=== PATIENT | female | born 1935 | race Caucasian/White ===

== ENCOUNTER 2016-07-18 12:39 | Inpatient (IN) | payer BC ==
[2016-07-14 12:35] LABS: BASOPHILS 0.4 %; BASOPHILS ABSOLUTE 0.03 10/3/uL (0.0-0.16); EOSINOPHILS 2.4 %; EOSINOPHILS ABSOLUTE 0.16 10/3/uL (0.0-0.53); HEMATOCRIT 38.5 % (36.0-48.0); IMMATURE GRANULOCYTES 0.4 %; IMMATURE GRANULOCYTES ABSOLUTE 0.03 10/3/uL (0.0-0.11); MEAN CORPUS HGB CONC 33.8 g/dL (32.0-36.0); MEAN CORPUSCULAR HEMOGLOB 30.7 pg (26.0-34.0); MEAN PLATELET VOLUME 10.1 fL (9.2-13.0); MONOCYTES 10.2 %; MONOCYTES ABSOLUTE 0.69 10/3/uL (0.21-1.20); NEUTROPHILS 55.6 %; NEUTROPHILS ABSOLUTE 3.77 10/3/uL (2.02-8.40); PLATELET COUNT 162 10/3/uL (150-400); RBC DISTRIBUTION WIDTH 13.2 % (12.0-16.0); RED CELL COUNT 4.23 10/6/uL (4.0-5.6); WHITE BLOOD CELLS 6.8 10/3/uL (4.5-10.5)
[2016-07-14 12:37] LABS: MANUAL DIFF NO %
[2016-07-14 12:53] LABS: BUN (BLOOD UREA NITROGEN) 21 MG/DL (6-23); CALCIUM, SERUM 9.1 MG/DL (8.5-10.4); CHLORIDE, SERUM 111 MMOL/L (96-112); CO2 (CARBON DIOXIDE) 28 MMOL/L (24-34); CREATININE 1.02 MG/DL (0.55-1.02); GFR AFRICAN AMERICAN 59 ML/MIN (>=60); GFR NON AFRICAN AMERICAN 51 ML/MIN (>=60); GLUCOSE, SERUM 104 MG/DL (60-99); POTASSIUM, SERUM 4.4 MMOL/L (3.5-5.3); SODIUM, SERUM 143 MMOL/L (135-148)
--- NOTE | ~2016-07-18 | OP ---
Record Of Operation [facility] [address] [place]. [address] NAME: PRASANNA DELAROSA : 33 STATUS : ADM IN PAT#: [id number] AGE: 81 ADM/REG DATE : 07/18/16 MR#: [id number] REPORT SERV DATE: 07/18/16 DICTATED BY: TYE RIVAS DATE: 07/18/16 REPORT STATUS : Draft TRANSCRIBED BY: MODL DATE: 07/18/16 DATE OF PROCEDURE: 07/18/2016 PREOPERATIVE DIAGNOSIS: High-grade right carotid stenosis. POSTOPERATIVE DIAGNOSIS: High-grade right carotid stenosis. PROCEDURE: Right carotid endarterectomy. SURGEON: Tye Rivas M.D. FELLOW: Kirit. ANESTHESIA: General. COMPLICATIONS: None. ESTIMATED BLOOD LOSS: 50 mL. HISTORY: The patient is an 81-year-old female with a high-grade right carotid stenosis. Based on this, it was felt she would benefit from right carotid endarterectomy. This was discussed in detail with the patient. She expressed understanding and desired to proceed. DESCRIPTION OF PROCEDURE: The patient was taken to the operating room and placed in the supine position. She was given general anesthesia without complication. Roll was placed under the shoulders. Head was turned to the left. An incision was created on the anterior border of the sternocleidomastoid muscle, taking care to be more than 1 fingerbreadth away from the angle of the mandible. Bovie cautery was used to dissect through the subcutaneous tissues. The sternocleidomastoid muscle was identified. Dissection was continued on the anterior border of it. The internal jugular vein was dissected and dissection continued on the anterior border of it. The common facial vein was identified and freed circumferentially and ligated with 2-0 silk ties and divided. Dissection was continued to identify the common carotid artery which was freed circumferentially and isolated with a vessel loop. Continued dissection was performed to identify the internal carotid artery beyond the area of disease. This was freed circumferentially and isolated with a vessel loop as well. The patient was given 6000 units of heparin intravenously. The external carotid and superior thyroid arteries were identified and isolated with a vessel loop as well. After more than 3 minutes of heparinization, the internal carotid artery was controlled with a vessel loop followed by the common carotid artery and external carotid artery. An 11 blade was used to create an arteriotomy on the common carotid artery. This was extended longitudinally onto the internal carotid artery beyond the area of disease. Endarterectomy was performed in a standard fashion with feathering of the proximal and distal end point and eversion endarterectomy on the external carotid artery. Two tacking sutures were placed on the distal end point with 7-0 Prolene suture. The endarterectomy site was copiously irrigated with all loose debris removed. Once this was felt to be adequate, the arteriotomy was closed using 8 x 80 bovine pericardial patch and running 6-0 Record Of Operation [facility] [id number] [place]. [address] NAME: PRASANNA DELAROSA : 33 STATUS : ADM IN [facility]#: [id number] AGE: 81 ADM/REG DATE : 07/18/16 MR#: [id number] REPORT SERV DATE: 07/18/16 DICTATED BY: TYE RIVAS DATE: 07/18/16 REPORT STATUS : Draft TRANSCRIBED BY: BLAINE DATE: 07/18/16 Prolene suture. Prior to completion, the shunt was pulled from the lateral aspect. The internal and external carotid arteries were back bled. The common carotid artery was flushed. The endarterectomy site was copiously irrigated. The closure was completed and flow restored to the external carotid artery, then after more than 5 heartbeats to the internal carotid artery. Hemostasis was assured and fibrillar placed over the closure. The deep tissues and platysma closed with 2-0 Vicryl suture. Skin closed with 4-0 Monocryl suture and Dermabond dressing applied. The patient tolerated the procedure well. She will be taken to the recovery room if neurologically intact after extubation in the operating room. ELIJAH/BLAINE Tye Rivas M.D. / [id number] CC: Tye Rivas M.D.
[~2016-07-18 12:39] MED LIST: ACET500CAP PO; ADVAIR; ADVIL PO; ALPHAGAN T; ASAB PO; CENTRUM TAB1 TAB PO; CITRACAL PO; COSOPT OPH; CRESTOR5 MG PO; FLONASE NAS; IBU400 PO; ISTALOL0.5 % OP; L20 PO; LEVOTHYROXIN112 MCG PO; MICARDIS40 PO; MULTIPLE VIT PO; NASAL SPRAY NAS; NORV5 PO; PLAVIX PO; PRAV10 PO; SPIRIVA; TRAVATAN OPH; VENTOLIN HFA INH
[2016-07-19 03:32] LABS: BASOPHILS 0.1 %; BASOPHILS ABSOLUTE 0.01 10/3/uL (0.0-0.16); EOSINOPHILS 0 %; HEMOGLOBIN 11.2 g/dL (12.0-16.0); IMMATURE GRANULOCYTES 0.3 %; IMMATURE GRANULOCYTES ABSOLUTE 0.02 10/3/uL (0.0-0.11); LYMPHOCYTES 12.4 %; LYMPHOCYTES ABSOLUTE 0.87 10/3/uL (0.67-4.30); MEAN CORPUS HGB CONC 34.4 g/dL (32.0-36.0); MEAN CORPUSCULAR VOLUME 90.3 fL (80-100); MEAN PLATELET VOLUME 9.9 fL (9.2-13.0); MONOCYTES 6.3 %; MONOCYTES ABSOLUTE 0.44 10/3/uL (0.21-1.20); NEUTROPHILS 80.9 %; NEUTROPHILS ABSOLUTE 5.65 10/3/uL (2.02-8.40); PLATELET COUNT 128 10/3/uL (150-400); RED CELL COUNT 3.61 10/6/uL (4.0-5.6)
[2016-07-19 03:33] LABS: HEMATOCRIT 32.6 % (36.0-48.0); MANUAL DIFF NO %
[2016-07-19 03:44] LABS: BUN (BLOOD UREA NITROGEN) 18 MG/DL (6-23); CHLORIDE, SERUM 115 MMOL/L (96-112); CREATININE 0.84 MG/DL (0.55-1.02); GFR AFRICAN AMERICAN 75 ML/MIN (>=60); GFR NON AFRICAN AMERICAN 65 ML/MIN (>=60); POTASSIUM, SERUM 4.2 MMOL/L (3.5-5.3); SODIUM, SERUM 144 MMOL/L (135-148)
[2016-07-19 03:48] LABS: CALCIUM, SERUM 7.4 MG/DL (8.5-10.4); CO2 (CARBON DIOXIDE) 22 MMOL/L (24-34); GLUCOSE, SERUM 142 MG/DL (60-99)
[2016-07-19] MEDS ORDERED: PCET PO (10:38)
[2016-07-19] MEDS ORDERED: PLAVIX PO (10:39)
[2016-08-25] MEDS ORDERED: ASAB PO (08:52)
[2016-08-25] MEDS ORDERED: PLAVIX PO (08:53)
[2016-08-25] MEDS ORDERED: CRESTOR5 MG PO (08:53)
[2016-08-25] MEDS ORDERED: NTG150 SL (08:53)
== END 2016-07-19 11:50 | disposition home or self-care (01) | DRG 39 ==
LOC: SDC/OF 12:39 → PACU 16:33 → CVICU 18:16
PROVIDERS: Emergency Medicine; Surgery
PROC: 03CM0ZZ Extirpation of Matter from Right External Carotid Artery, Open Approach (ICD-10-PCS; principal; 2016-07-18 14:45)
DX: I65.21 Occlusion and stenosis of right carotid artery (principal); J44.9 Chronic obstructive pulmonary disease, unspecified; E30.9 Disorder of puberty, unspecified; I25.2 Old myocardial infarction; I25.10 Atherosclerotic heart disease of native coronary artery without angina pectoris; E78.2 Mixed hyperlipidemia
CPT/HCPCS: 80048; 83735; 85025; 87641; 88304; 88311; 93005; A9270-GY; J0690; J2370; J2405; J2550; J2710; J3010